=== PATIENT | male | born 1960 | race Caucasian/White ===

== ENCOUNTER 2023-03-10 18:10 | Inpatient (IN) | payer OTHER ==
[2023-03-10 18:44] VITALS: BMI 21.4
[2023-03-10] MEDS ORDERED: LACTATED RINGERS SOLUTION 1000 ML INFUS.BAG IV ONE (20:48)
[2023-03-10] MEDS ORDERED: ONDANSETRON 4 MG/2 ML VIAL IVPUSH ONE (20:48)
[2023-03-10] MEDS ORDERED: ACETAMINOPHEN 1000 MG/100 ML BAG IVPB ONE (20:48)
[2023-03-10] MEDS ORDERED: FAMOTIDINE 20 MG/50 ML IVPB 20 MG/50 ML MG IVPB ONE (20:48)
[2023-03-10] MEDS ORDERED: ACETAMINOPHEN INJECTION 100 ML IVPB ONE (20:57)
[2023-03-10] MEDS ORDERED: ONDANSETRON 4 MG/2 ML VIAL ONE (20:57)
[2023-03-10] MEDS ORDERED: FAMOTIDINE 10 MG/ML VIAL IVPB ONE (20:58)
[2023-03-10 21:23] LABS: INR 1.43 (0.83-1.09); PROTHROMBIN TIME (PATIENT) 16.5 SEC (9.7-13.0)
[2023-03-10 21:26] LABS: ACTIVATED PTT 34.8 SECONDS (25.2-36.5)
[2023-03-10 21:31] LABS: VENOUS PH 7.399 (7.310-7.410)
[2023-03-10] MEDS ORDERED: VANCOMYCIN 1,000 MG in DEXTROSE 5%-WATER - 250 ML IVPB ONE (21:55)
[2023-03-10] MEDS ORDERED: PIPERACILLIN/TAZOB 4.5 GM 4.5 GM in DEXTROSE 5%-WATER 100 ML IVPB ONE (21:55)
[2023-03-10 22:03] LABS: POTASSIUM 4.3 mmol/L (3.5-5.1)
[2023-03-10 22:07] LABS: ALBUMIN 3.1 g/dl (3.4-5.0); CALCIUM 8.9 mg/dL (8.5-10.1)
[2023-03-10 22:08] LABS: BLOOD UREA NITROGEN 16.7 mg/dL (7-18)
[2023-03-10 22:11] LABS: CREATININE 0.9 mg/dL (0.55-1.3)
[2023-03-10 22:12] LABS: BILIRUBIN,TOTAL 0.9 mg/dL (0.2-1); TOT PROT 6.8 g/dl (6.4-8.2)
[2023-03-10] MEDS ORDERED: CEFTRIAXONE 1,000 MG in DEXTROSE 5%-WATER - 50 ML IVPB ONE (23:04)
[2023-03-10] MEDS ORDERED: AZITHROMYCIN IVPB 500 MG in DEXTROSE 5%-WATER - 250 ML IVPB ONE (23:04)
[2023-03-10] MEDS ORDERED: CEFTRIAXONE 1 GM/50 ML BAG ONE (23:51)
[2023-03-10] MEDS ORDERED: AZITHROMYCIN IVPB 500 MG/250 ML BAG IVPB ONE (23:52)
[2023-03-11 01:18] LABS: HEMATOCRIT 34.9 % (35.4-49); HEMOGLOBIN 12.3 GM/dL (11.7-16.9); MCH 31.3 pg (25.7-33.7); MCHC 35.1 g/dl (32.0-35.9); MEAN CELL VOLUME 89.3 fl (80-96); MEAN PLT VOLUME 8.7 fl (7.5-11.1); PLATELET COUNT 105 10^3/uL (134-434); RBC 3.91 M/mm3 (4.00-5.60); WHITE BLOOD COUNT 10.1 K/mm3 (4.0-10.0)
[2023-03-11 02:13] LABS: LACTIC ACID 2.8 mmol/L (0.4-2.0)
[2023-03-11 03:15] LABS: EPI CELLS 5 /uL (0-25.1); HYALINE CASTS 0 /uL (0-3.1); PH,URINE 7.5 (5.0-8.0); URINE APPEARANCE TURBID; URINE BACTERIA 292 /uL (0-1359); URINE BILIRUBIN NEGATIVE (NEGATIVE); URINE COLOR ORANGE; URINE GLUCOSE (UA) 2+ (NEGATIVE); URINE KETONE NEGATIVE (NEGATIVE); URINE LEUK ESTERASE 1+ (NEGATIVE); URINE NITRITE NEGATIVE (NEGATIVE); URINE PROTEIN 2+ (NEGATIVE); URINE RBC 4131 /uL (0-23.9); URINE WBC 11532 /uL (0-25.8)
[2023-03-11] MEDS ORDERED: VANCOMYCIN 1 GRAM (PRE-DOCKED) 1,000 MG/250 ML BAG IVPB SCH ×2 (05:30→06:00)
[2023-03-11] MEDS ORDERED: VANCOMYCIN 1 GRAM (PRE-DOCKED) 1,000 MG/250 ML BAG IVPB ONE (05:53)
[2023-03-11 06:42] LABS: HEMOGLOBIN 11.8 GM/dL (11.7-16.9); MCH 30.3 pg (25.7-33.7); MCHC 33.6 g/dl (32.0-35.9); MEAN CELL VOLUME 90.3 fl (80-96); MEAN PLT VOLUME 8.9 fl (7.5-11.1); PLATELET COUNT 99 10^3/uL (134-434); RBC 3.88 M/mm3 (4.00-5.60); RDW 13.6 % (11.9-15.9); WHITE BLOOD COUNT 11.8 K/mm3 (4.0-10.0)
[2023-03-11 07:10] LABS: CALCIUM 8.4 mg/dL (8.5-10.1)
[2023-03-11 07:11] LABS: ALBUMIN 2.6 g/dl (3.4-5.0); BLOOD UREA NITROGEN 15.2 mg/dL (7-18); MAGNESIUM 1.7 mg/dL (1.8-2.4)
[2023-03-11 07:14] LABS: CREATININE 0.7 mg/dL (0.55-1.3); PHOSPHOROUS 3.1 mg/dL (2.5-4.9)
[2023-03-11 07:15] LABS: BILIRUBIN,TOTAL 0.5 mg/dL (0.2-1)
[2023-03-11 07:16] LABS: TOT PROT 5.9 g/dl (6.4-8.2)
[2023-03-11] MEDS: PANTOPRAZOLE 20 MG TABLET PO SCH (08:55)
[2023-03-11] MEDS ORDERED: ENOXAPARIN NA (PORCINE) 40 MG/0.4 ML DISP.SYRIN SQ SCH (10:00)
[2023-03-11] MEDS ORDERED: PIPERACILLIN/TAZOB 3.375 GM 3.375 GM in DEXTROSE 5%-WATER - 50 ML IVPB SCH (10:00)
[2023-03-11] MEDS ORDERED: clonazePAM 0.5 MG ODT TABLETS SL SCH (10:00)
[2023-03-11] MEDS ORDERED: DIVALPROEX NA *ER* EXTEND REL 500 MG TABLET.SA (FP) PO SCH ×2 (10:00→22:00)
[2023-03-11] MEDS: FOLIC ACID 1 MG TABLET (FP) PO SCH (10:08)
[2023-03-11] MEDS: CHOLECALCIFEROL (VIT D3) 1,000 UNIT (25 MCG) TABLET PO SCH (10:08)
[2023-03-11] MEDS ORDERED: clonazePAM 0.5 MG TABLET PO SCH ×2 (11:00→22:00)
[2023-03-11 11:27] LABS: LACTIC ACID 2.2 mmol/L (0.4-2.0)
[2023-03-11] MEDS: INSULIN SLIDING SCALE (NOVOLOG) 1 VIAL SQ SCH ×3 (11:32→22:56)
[2023-03-11] MEDS ORDERED: DIVALPROEX SODIUM 500 MG TABLET E.C. PO SCH (12:47)
[2023-03-11] MEDS: BACITRACIN ZINC 15 GM TUBE TOPICAL OINTMENT TP SCH ×2 (13:54→22:18)
[2023-03-11] MEDS: DIVALPROEX SODIUM 500 MG TABLET E.C. PO SCH ×2 (14:52→22:18)
[2023-03-11] MEDS: PIPERACILLIN/TAZOB 3.375 GM 3.375 GM in DEXTROSE 5%-WATER - 50 ML IVPB SCH (17:10)
[2023-03-11] MEDS ORDERED: ARIPiprazole 2 MG TABLET PO SCH (22:00)
[2023-03-12] MEDS: PIPERACILLIN/TAZOB 3.375 GM 3.375 GM in DEXTROSE 5%-WATER - 50 ML IVPB SCH ×3 (01:24→17:42)
[2023-03-12] MEDS: INSULIN SLIDING SCALE (NOVOLOG) 1 VIAL SQ SCH ×4 (06:28→22:15)
[2023-03-12] MEDS: PANTOPRAZOLE 20 MG TABLET PO SCH (06:29)
[2023-03-12 10:10] LABS: HEMOGLOBIN 11.6 GM/dL (11.7-16.9); MCH 31.1 pg (25.7-33.7); MCHC 35.2 g/dl (32.0-35.9); MEAN CELL VOLUME 88.2 fl (80-96); MEAN PLT VOLUME 8.6 fl (7.5-11.1); PLATELET COUNT 86 10^3/uL (134-434); RBC 3.74 M/mm3 (4.00-5.60); RDW 13.9 % (11.9-15.9); WHITE BLOOD COUNT 9.9 K/mm3 (4.0-10.0)
[2023-03-12 10:39] LABS: POTASSIUM 3.8 mmol/L (3.5-5.1)
[2023-03-12 10:44] LABS: CALCIUM 8.5 mg/dL (8.5-10.1)
[2023-03-12 10:45] LABS: BLOOD UREA NITROGEN 16.5 mg/dL (7-18)
[2023-03-12 10:47] LABS: CREATININE 0.7 mg/dL (0.55-1.3)
[2023-03-12 10:49] LABS: BILIRUBIN,TOTAL 0.3 mg/dL (0.2-1); TOT PROT 5.8 g/dl (6.4-8.2)
[2023-03-12 10:51] LABS: ALBUMIN 2.4 g/dl (3.4-5.0)
[2023-03-12] MEDS: FLUoxetine HCL 20 MG CAPSULE PO SCH (11:29)
[2023-03-12] MEDS: CHOLECALCIFEROL (VIT D3) 1,000 UNIT (25 MCG) TABLET PO SCH (11:29)
[2023-03-12] MEDS: DIVALPROEX SODIUM 500 MG TABLET E.C. PO SCH ×2 (11:29→22:15)
[2023-03-12] MEDS: FOLIC ACID 1 MG TABLET (FP) PO SCH (11:29)
[2023-03-12] MEDS: BACITRACIN ZINC 15 GM TUBE TOPICAL OINTMENT TP SCH ×2 (11:57→22:15)
[2023-03-12] MEDS: ARIPiprazole 2 MG TABLET PO SCH (22:14)
[2023-03-13] MEDS: PIPERACILLIN/TAZOB 3.375 GM 3.375 GM in DEXTROSE 5%-WATER - 50 ML IVPB SCH ×2 (01:30→10:06)
[2023-03-13] MEDS: INSULIN SLIDING SCALE (NOVOLOG) 1 VIAL SQ SCH ×3 (06:36→12:53)
[2023-03-13] MEDS: PANTOPRAZOLE 20 MG TABLET PO SCH (06:37)
[2023-03-13 09:43] LABS: HEMOGLOBIN 11.5 GM/dL (11.7-16.9); MCH 30.9 pg (25.7-33.7); MCHC 34.9 g/dl (32.0-35.9); MEAN CELL VOLUME 88.7 fl (80-96); MEAN PLT VOLUME 9.3 fl (7.5-11.1); PLATELET COUNT 95 10^3/uL (134-434); RBC 3.71 M/mm3 (4.00-5.60); RDW 13.6 % (11.9-15.9); WHITE BLOOD COUNT 5.9 K/mm3 (4.0-10.0)
[2023-03-13 09:47] LABS: BLOOD UREA NITROGEN 17.6 mg/dL (7-18); CALCIUM 8.4 mg/dL (8.5-10.1)
[2023-03-13 09:51] LABS: CREATININE 0.5 mg/dL (0.55-1.3)
[2023-03-13] MEDS: DIVALPROEX SODIUM 500 MG TABLET E.C. PO SCH ×2 (10:06→22:36)
[2023-03-13] MEDS: FOLIC ACID 1 MG TABLET (FP) PO SCH (10:06)
[2023-03-13] MEDS: CHOLECALCIFEROL (VIT D3) 1,000 UNIT (25 MCG) TABLET PO SCH (10:06)
[2023-03-13] MEDS: BACITRACIN ZINC 15 GM TUBE TOPICAL OINTMENT TP SCH ×2 (10:07→22:35)
[2023-03-13] MEDS: FLUoxetine HCL 20 MG CAPSULE PO SCH (10:35)
[2023-03-13] MEDS ORDERED: INSULIN SLIDING SCALE (NOVOLOG) 1 VIAL SQ SCH (12:58)
[2023-03-13] MEDS: ACETAMINOPHEN 500 MG TABLET (FP) PO PRN ×2 (13:20→22:39)
[2023-03-13] MEDS: MEROPENEM 1 GM in DEXTROSE 5%-WATER 100 ML IVPB SCH ×2 (13:22→17:24)
[2023-03-13] MEDS: ARIPiprazole 2 MG TABLET PO SCH (22:35)
[2023-03-14] MEDS: MEROPENEM 1 GM in DEXTROSE 5%-WATER 100 ML IVPB SCH ×3 (02:42→18:57)
[2023-03-14] MEDS: PANTOPRAZOLE 20 MG TABLET PO SCH (06:17)
[2023-03-14] MEDS ORDERED: MEROPENEM 1 GM VIAL (RESTRICTED TO ID) IVPB ONE (09:05)
[2023-03-14] MEDS: FLUoxetine HCL 20 MG CAPSULE PO SCH (09:19)
[2023-03-14] MEDS: DIVALPROEX SODIUM 500 MG TABLET E.C. PO SCH ×2 (09:19→22:34)
[2023-03-14] MEDS: FOLIC ACID 1 MG TABLET (FP) PO SCH (09:19)
[2023-03-14] MEDS: BACITRACIN ZINC 15 GM TUBE TOPICAL OINTMENT TP SCH ×2 (09:19→22:36)
[2023-03-14] MEDS: CHOLECALCIFEROL (VIT D3) 1,000 UNIT (25 MCG) TABLET PO SCH (09:19)
[2023-03-14] MEDS: ARIPiprazole 2 MG TABLET PO SCH (22:33)
[2023-03-15] MEDS: MEROPENEM 1 GM in DEXTROSE 5%-WATER 100 ML IVPB SCH ×3 (01:09→17:15)
[2023-03-15] MEDS: PANTOPRAZOLE 20 MG TABLET PO SCH (06:31)
[2023-03-15 07:46] LABS: HEMATOCRIT 34.5 % (35.4-49); HEMOGLOBIN 11.8 GM/dL (11.7-16.9); MCH 30.2 pg (25.7-33.7); MCHC 34.2 g/dl (32.0-35.9); MEAN CELL VOLUME 88.3 fl (80-96); PLATELET COUNT 150 10^3/uL (134-434); RBC 3.91 M/mm3 (4.00-5.60); RDW 13.6 % (11.9-15.9); WHITE BLOOD COUNT 6.2 K/mm3 (4.0-10.0)
[2023-03-15 07:57] LABS: CALCIUM 8.4 mg/dL (8.5-10.1)
[2023-03-15 07:58] LABS: BLOOD UREA NITROGEN 17.6 mg/dL (7-18)
[2023-03-15 07:59] LABS: POTASSIUM 4.3 mmol/L (3.5-5.1)
[2023-03-15 08:01] LABS: CREATININE 0.7 mg/dL (0.55-1.3)
[2023-03-15] MEDS: ACETAMINOPHEN 500 MG TABLET (FP) PO PRN ×2 (08:47→23:36)
[2023-03-15 09:02] LABS: ANISOCYTOSIS 0; MACROCYTOSIS 0
[2023-03-15] MEDS: DIVALPROEX SODIUM 500 MG TABLET E.C. PO SCH ×2 (10:39→21:04)
[2023-03-15] MEDS: LACTOBACILLUS ACIDOPHILUS 1 TABLET PO SCH (10:39)
[2023-03-15] MEDS: FLUoxetine HCL 20 MG CAPSULE PO SCH (10:39)
[2023-03-15] MEDS: FOLIC ACID 1 MG TABLET (FP) PO SCH (10:39)
[2023-03-15] MEDS: CHOLECALCIFEROL (VIT D3) 1,000 UNIT (25 MCG) TABLET PO SCH (10:39)
[2023-03-15] MEDS: BACITRACIN ZINC 15 GM TUBE TOPICAL OINTMENT TP SCH ×2 (10:52→21:05)
[2023-03-15] MEDS ORDERED: SIMETHICONE 40 MG/0.6 ML BOTTLE PO PRN (12:04)
[2023-03-15] MEDS ORDERED: SIMETHICONE 80 MG TAB.CHEW (FP) PO PRN (13:12)
[2023-03-15] MEDS: ARIPiprazole 2 MG TABLET PO SCH (21:05)
[2023-03-16] MEDS: MEROPENEM 1 GM in DEXTROSE 5%-WATER 100 ML IVPB SCH ×3 (02:11→17:07)
[2023-03-16] MEDS: PANTOPRAZOLE 20 MG TABLET PO SCH (06:12)
[2023-03-16] MEDS: FLUoxetine HCL 20 MG CAPSULE PO SCH (10:20)
[2023-03-16 10:21] LABS: HEMATOCRIT 36.1 % (35.4-49); HEMOGLOBIN 12.8 GM/dL (11.7-16.9); MCH 31.2 pg (25.7-33.7); MCHC 35.4 g/dl (32.0-35.9); MEAN CELL VOLUME 88.2 fl (80-96); MEAN PLT VOLUME 7.3 fl (7.5-11.1); PLATELET COUNT 201 10^3/uL (134-434); RBC 4.09 M/mm3 (4.00-5.60); RDW 13.7 % (11.9-15.9); WHITE BLOOD COUNT 5.6 K/mm3 (4.0-10.0)
[2023-03-16] MEDS: DIVALPROEX SODIUM 500 MG TABLET E.C. PO SCH ×2 (10:21→21:23)
[2023-03-16] MEDS: LACTOBACILLUS ACIDOPHILUS 1 TABLET PO SCH (10:21)
[2023-03-16] MEDS: CHOLECALCIFEROL (VIT D3) 1,000 UNIT (25 MCG) TABLET PO SCH (10:21)
[2023-03-16] MEDS: FOLIC ACID 1 MG TABLET (FP) PO SCH (10:21)
[2023-03-16 10:53] LABS: ANISOCYTOSIS 0; HELMET CELLS 0; HOWELL-JOLLY BODIES 0; MACROCYTOSIS 0; OVALOCYTE 0; ROULEAU 0; SICKELED CELLS 0; TARGET CELLS 0; TEAR DROP CELLS 0; TOXIC GRANULATION 0
[2023-03-16 10:54] LABS: POTASSIUM 4.2 mmol/L (3.5-5.1)
[2023-03-16 10:58] LABS: CALCIUM 8.6 mg/dL (8.5-10.1)
[2023-03-16 10:59] LABS: ALBUMIN 2.8 g/dl (3.4-5.0); BLOOD UREA NITROGEN 21.9 mg/dL (7-18)
[2023-03-16 11:02] LABS: CREATININE 0.8 mg/dL (0.55-1.3)
[2023-03-16 11:04] LABS: BILIRUBIN,TOTAL 0.2 mg/dL (0.2-1); TOT PROT 6.4 g/dl (6.4-8.2)
[2023-03-16] MEDS: BACITRACIN ZINC 15 GM TUBE TOPICAL OINTMENT TP SCH ×2 (11:20→21:24)
[2023-03-16] MEDS: ENOXAPARIN NA (PORCINE) 40 MG/0.4 ML DISP.SYRIN SQ SCH (15:07)
[2023-03-16] MEDS: ALBUTEROL SO4 2.5/IPRATROPIUM 0.5 INH SOL 3 ML VIAL.NEB. NEB SCH ×2 (15:53→20:05)
[2023-03-16] MEDS: ARIPiprazole 2 MG TABLET PO SCH (21:23)
[2023-03-17] MEDS: MEROPENEM 1 GM in DEXTROSE 5%-WATER 100 ML IVPB SCH ×3 (01:43→17:17)
[2023-03-17] MEDS: PANTOPRAZOLE 20 MG TABLET PO SCH (06:04)
[2023-03-17] MEDS: ALBUTEROL SO4 2.5/IPRATROPIUM 0.5 INH SOL 3 ML VIAL.NEB. NEB SCH ×4 (07:37→20:39)
[2023-03-17 09:51] LABS: HEMATOCRIT 35.2 % (35.4-49); HEMOGLOBIN 12.3 GM/dL (11.7-16.9); MCH 30.9 pg (25.7-33.7); MCHC 34.9 g/dl (32.0-35.9); MEAN CELL VOLUME 88.6 fl (80-96); MEAN PLT VOLUME 7.8 fl (7.5-11.1); PLATELET COUNT 236 10^3/uL (134-434); RBC 3.97 M/mm3 (4.00-5.60); RDW 13.5 % (11.9-15.9); WHITE BLOOD COUNT 7.2 K/mm3 (4.0-10.0)
[2023-03-17 10:11] LABS: POTASSIUM 4.2 mmol/L (3.5-5.1)
[2023-03-17] MEDS: ENOXAPARIN NA (PORCINE) 40 MG/0.4 ML DISP.SYRIN SQ SCH (10:23)
[2023-03-17] MEDS: CHOLECALCIFEROL (VIT D3) 1,000 UNIT (25 MCG) TABLET PO SCH (10:24)
[2023-03-17] MEDS: FOLIC ACID 1 MG TABLET (FP) PO SCH (10:24)
[2023-03-17] MEDS: LACTOBACILLUS ACIDOPHILUS 1 TABLET PO SCH (10:24)
[2023-03-17] MEDS: BACITRACIN ZINC 15 GM TUBE TOPICAL OINTMENT TP SCH ×2 (10:25→21:26)
[2023-03-17] MEDS: FLUoxetine HCL 20 MG CAPSULE PO SCH (10:25)
[2023-03-17] MEDS: ARIPiprazole 2 MG TABLET PO SCH ×2 (10:26→21:27)
[2023-03-17 10:49] LABS: CALCIUM 8.5 mg/dL (8.5-10.1)
[2023-03-17] MEDS: DIVALPROEX SODIUM 500 MG TABLET E.C. PO SCH ×2 (10:49→21:26)
[2023-03-17 10:50] LABS: ANISOCYTOSIS 2+; BLOOD UREA NITROGEN 18.9 mg/dL (7-18); MACROCYTOSIS 0
[2023-03-17 10:53] LABS: CREATININE 0.5 mg/dL (0.55-1.3)
[2023-03-18] MEDS: MEROPENEM 1 GM in DEXTROSE 5%-WATER 100 ML IVPB SCH ×2 (02:21→12:37)
[2023-03-18] MEDS: PANTOPRAZOLE 20 MG TABLET PO SCH (06:09)
[2023-03-18] MEDS: ALBUTEROL SO4 2.5/IPRATROPIUM 0.5 INH SOL 3 ML VIAL.NEB. NEB SCH ×4 (08:02→20:15)
[2023-03-18 10:04] LABS: BASO % 0.6 % (0-2.0); EOS % 0.5 % (0-4.5); HEMATOCRIT 36.8 % (35.4-49); HEMOGLOBIN 12.4 GM/dL (11.7-16.9); LYMPH % 38.8 % (8-40); MCHC 33.6 g/dl (32.0-35.9); MEAN CELL VOLUME 89.3 fl (80-96); MEAN PLT VOLUME 7.2 fl (7.5-11.1); MONO % 9.8 % (3.8-10.2); NEUT % 50.3 % (42.8-82.8); PLATELET COUNT 332 10^3/uL (134-434); RBC 4.13 M/mm3 (4.00-5.60); RDW 14.1 % (11.9-15.9); WHITE BLOOD COUNT 7.2 K/mm3 (4.0-10.0)
[2023-03-18 10:23] LABS: POTASSIUM 3.9 mmol/L (3.5-5.1)
[2023-03-18 10:26] LABS: CALCIUM 8.7 mg/dL (8.5-10.1)
[2023-03-18 10:27] LABS: ALBUMIN 2.8 g/dl (3.4-5.0); BLOOD UREA NITROGEN 19.9 mg/dL (7-18)
[2023-03-18 10:28] LABS: CREATININE 0.6 mg/dL (0.55-1.3)
[2023-03-18 10:32] LABS: BILIRUBIN,TOTAL 0.3 mg/dL (0.2-1); TOT PROT 6.6 g/dl (6.4-8.2)
[2023-03-18] MEDS: FOLIC ACID 1 MG TABLET (FP) PO SCH (10:57)
[2023-03-18] MEDS: CHOLECALCIFEROL (VIT D3) 1,000 UNIT (25 MCG) TABLET PO SCH (10:57)
[2023-03-18] MEDS: ENOXAPARIN NA (PORCINE) 40 MG/0.4 ML DISP.SYRIN SQ SCH (10:57)
[2023-03-18] MEDS: LACTOBACILLUS ACIDOPHILUS 1 TABLET PO SCH (10:58)
[2023-03-18] MEDS: DIVALPROEX SODIUM 500 MG TABLET E.C. PO SCH ×2 (10:58→22:04)
[2023-03-18] MEDS: FLUoxetine HCL 20 MG CAPSULE PO SCH (11:08)
[2023-03-18] MEDS: BACITRACIN ZINC 15 GM TUBE TOPICAL OINTMENT TP SCH ×2 (13:06→22:04)
[2023-03-18] MEDS: ARIPiprazole 2 MG TABLET PO SCH (22:04)
[2023-03-19] MEDS: PANTOPRAZOLE 20 MG TABLET PO SCH (06:34)
[2023-03-19] MEDS: ALBUTEROL SO4 2.5/IPRATROPIUM 0.5 INH SOL 3 ML VIAL.NEB. NEB SCH ×4 (07:15→20:05)
[2023-03-19] MEDS: LACTOBACILLUS ACIDOPHILUS 1 TABLET PO SCH (09:47)
[2023-03-19] MEDS: ENOXAPARIN NA (PORCINE) 40 MG/0.4 ML DISP.SYRIN SQ SCH (09:47)
[2023-03-19] MEDS: FOLIC ACID 1 MG TABLET (FP) PO SCH (09:47)
[2023-03-19] MEDS: DIVALPROEX SODIUM 500 MG TABLET E.C. PO SCH ×2 (09:47→21:36)
[2023-03-19] MEDS: CHOLECALCIFEROL (VIT D3) 1,000 UNIT (25 MCG) TABLET PO SCH (09:47)
[2023-03-19] MEDS: BACITRACIN ZINC 15 GM TUBE TOPICAL OINTMENT TP SCH ×2 (09:48→21:35)
[2023-03-19] MEDS: FLUoxetine HCL 20 MG CAPSULE PO SCH (09:48)
[2023-03-19 10:03] LABS: HEMATOCRIT 34.1 % (35.4-49); HEMOGLOBIN 11.6 GM/dL (11.7-16.9); MCH 30.2 pg (25.7-33.7); MEAN CELL VOLUME 89.1 fl (80-96); MEAN PLT VOLUME 7.2 fl (7.5-11.1); PLATELET COUNT 383 10^3/uL (134-434); RBC 3.83 M/mm3 (4.00-5.60); WHITE BLOOD COUNT 6.7 K/mm3 (4.0-10.0)
[2023-03-19 10:14] LABS: POTASSIUM 4.2 mmol/L (3.5-5.1)
[2023-03-19 10:42] LABS: ALBUMIN 2.8 g/dl (3.4-5.0); BLOOD UREA NITROGEN 23.1 mg/dL (7-18); CALCIUM 8.9 mg/dL (8.5-10.1)
[2023-03-19 10:43] LABS: BILIRUBIN,TOTAL 0.3 mg/dL (0.2-1)
[2023-03-19 10:44] LABS: TOT PROT 6.3 g/dl (6.4-8.2)
[2023-03-19 10:45] LABS: CREATININE 0.6 mg/dL (0.55-1.3)
[2023-03-19] MEDS: ARIPiprazole 2 MG TABLET PO SCH (21:35)
[2023-03-20] MEDS: PANTOPRAZOLE 20 MG TABLET PO SCH (06:28)
[2023-03-20] MEDS: ALBUTEROL SO4 2.5/IPRATROPIUM 0.5 INH SOL 3 ML VIAL.NEB. NEB SCH ×4 (07:45→20:08)
[2023-03-20 07:47] LABS: BASO % 0.7 % (0-2.0); EOS % 1.9 % (0-4.5); HEMATOCRIT 35.3 % (35.4-49); HEMOGLOBIN 11.9 GM/dL (11.7-16.9); LYMPH % 39.9 % (8-40); MCH 30.4 pg (25.7-33.7); MCHC 33.8 g/dl (32.0-35.9); MEAN PLT VOLUME 7.2 fl (7.5-11.1); MONO % 8.1 % (3.8-10.2); NEUT % 49.4 % (42.8-82.8); PLATELET COUNT 401 10^3/uL (134-434); RBC 3.93 M/mm3 (4.00-5.60); RDW 13.8 % (11.9-15.9); WHITE BLOOD COUNT 6.8 K/mm3 (4.0-10.0)
[2023-03-20 08:13] LABS: POTASSIUM 4.3 mmol/L (3.5-5.1)
[2023-03-20 08:19] LABS: CALCIUM 8.7 mg/dL (8.5-10.1)
[2023-03-20 08:20] LABS: ALBUMIN 2.8 g/dl (3.4-5.0); BLOOD UREA NITROGEN 19.7 mg/dL (7-18)
[2023-03-20 08:23] LABS: CREATININE 0.5 mg/dL (0.55-1.3)
[2023-03-20 08:24] LABS: BILIRUBIN,TOTAL 0.3 mg/dL (0.2-1); TOT PROT 6.3 g/dl (6.4-8.2)
[2023-03-20] MEDS: FOLIC ACID 1 MG TABLET (FP) PO SCH (09:58)
[2023-03-20] MEDS: CHOLECALCIFEROL (VIT D3) 1,000 UNIT (25 MCG) TABLET PO SCH (09:58)
[2023-03-20] MEDS: ENOXAPARIN NA (PORCINE) 40 MG/0.4 ML DISP.SYRIN SQ SCH (09:59)
[2023-03-20] MEDS: LACTOBACILLUS ACIDOPHILUS 1 TABLET PO SCH (09:59)
[2023-03-20] MEDS: FLUoxetine HCL 20 MG CAPSULE PO SCH (09:59)
[2023-03-20] MEDS: DIVALPROEX SODIUM 500 MG TABLET E.C. PO SCH ×2 (09:59→21:54)
[2023-03-20] MEDS: BACITRACIN ZINC 15 GM TUBE TOPICAL OINTMENT TP SCH ×2 (10:09→21:55)
[2023-03-20] MEDS: ACETAMINOPHEN 500 MG TABLET (FP) PO PRN (14:21)
[2023-03-20] MEDS: ARIPiprazole 2 MG TABLET PO SCH (21:54)
[2023-03-21] MEDS: PANTOPRAZOLE 20 MG TABLET PO SCH (06:10)
[2023-03-21] MEDS: ALBUTEROL SO4 2.5/IPRATROPIUM 0.5 INH SOL 3 ML VIAL.NEB. NEB SCH ×4 (07:50→20:30)
[2023-03-21] MEDS: LACTOBACILLUS ACIDOPHILUS 1 TABLET PO SCH (09:28)
[2023-03-21] MEDS: ENOXAPARIN NA (PORCINE) 40 MG/0.4 ML DISP.SYRIN SQ SCH (09:28)
[2023-03-21] MEDS: CHOLECALCIFEROL (VIT D3) 1,000 UNIT (25 MCG) TABLET PO SCH (09:29)
[2023-03-21] MEDS: DIVALPROEX SODIUM 500 MG TABLET E.C. PO SCH ×2 (09:29→21:53)
[2023-03-21] MEDS: FLUoxetine HCL 20 MG CAPSULE PO SCH (09:29)
[2023-03-21] MEDS: FOLIC ACID 1 MG TABLET (FP) PO SCH (09:29)
[2023-03-21] MEDS: BACITRACIN ZINC 15 GM TUBE TOPICAL OINTMENT TP SCH ×2 (09:30→21:52)
[2023-03-21 10:47] LABS: BASO % 0.5 % (0-2.0); EOS % 1.1 % (0-4.5); HEMATOCRIT 36.5 % (35.4-49); HEMOGLOBIN 12.7 GM/dL (11.7-16.9); LYMPH % 34.6 % (8-40); MCH 30.7 pg (25.7-33.7); MCHC 34.9 g/dl (32.0-35.9); MEAN CELL VOLUME 87.9 fl (80-96); MEAN PLT VOLUME 7.1 fl (7.5-11.1); MONO % 6.9 % (3.8-10.2); NEUT % 56.9 % (42.8-82.8); PLATELET COUNT 516 10^3/uL (134-434); RBC 4.16 M/mm3 (4.00-5.60); RDW 13.5 % (11.9-15.9); WHITE BLOOD COUNT 6.7 K/mm3 (4.0-10.0)
[2023-03-21 11:07] LABS: POTASSIUM 4.2 mmol/L (3.5-5.1)
[2023-03-21 11:11] LABS: ALBUMIN 2.9 g/dl (3.4-5.0); BLOOD UREA NITROGEN 22.2 mg/dL (7-18); CALCIUM 8.9 mg/dL (8.5-10.1)
[2023-03-21 11:14] LABS: CREATININE 0.6 mg/dL (0.55-1.3)
[2023-03-21 11:16] LABS: BILIRUBIN,TOTAL 0.3 mg/dL (0.2-1); TOT PROT 6.7 g/dl (6.4-8.2)
[2023-03-21] MEDS: VANCOMYCIN ORAL SOLUTION 125 MG/2.5 ML PO SCH ×2 (12:37→17:05)
[2023-03-21] MEDS: ARIPiprazole 2 MG TABLET PO SCH (21:53)
[2023-03-22] MEDS: VANCOMYCIN ORAL SOLUTION 125 MG/2.5 ML PO SCH ×2 (00:12→05:22)
[2023-03-22] MEDS: ALBUTEROL SO4 2.5/IPRATROPIUM 0.5 INH SOL 3 ML VIAL.NEB. NEB SCH ×4 (08:00→20:00)
[2023-03-22] MEDS: CHOLECALCIFEROL (VIT D3) 1,000 UNIT (25 MCG) TABLET PO SCH (10:01)
[2023-03-22] MEDS: FLUoxetine HCL 20 MG CAPSULE PO SCH (10:01)
[2023-03-22] MEDS: FOLIC ACID 1 MG TABLET (FP) PO SCH (10:01)
[2023-03-22] MEDS: ENOXAPARIN NA (PORCINE) 40 MG/0.4 ML DISP.SYRIN SQ SCH (10:01)
[2023-03-22] MEDS: BACITRACIN ZINC 15 GM TUBE TOPICAL OINTMENT TP SCH ×2 (10:02→21:45)
[2023-03-22] MEDS: DIVALPROEX SODIUM 500 MG TABLET E.C. PO SCH ×2 (10:02→21:45)
[2023-03-22] MEDS: LACTOBACILLUS ACIDOPHILUS 1 TABLET PO SCH (10:02)
[2023-03-22 11:31] LABS: BASO % 0.5 % (0-2.0); EOS % 0.7 % (0-4.5); HEMATOCRIT 34.8 % (35.4-49); HEMOGLOBIN 12.5 GM/dL (11.7-16.9); LYMPH % 33.4 % (8-40); MCH 31.5 pg (25.7-33.7); MCHC 35.9 g/dl (32.0-35.9); MEAN CELL VOLUME 87.8 fl (80-96); MEAN PLT VOLUME 7.1 fl (7.5-11.1); MONO % 7.2 % (3.8-10.2); NEUT % 58.2 % (42.8-82.8); PLATELET COUNT 503 10^3/uL (134-434); RBC 3.96 M/mm3 (4.00-5.60); RDW 13.6 % (11.9-15.9); WHITE BLOOD COUNT 5.9 K/mm3 (4.0-10.0)
[2023-03-22 12:00] LABS: POTASSIUM 4.2 mmol/L (3.5-5.1)
[2023-03-22 12:06] LABS: BLOOD UREA NITROGEN 18.8 mg/dL (7-18)
[2023-03-22 12:08] LABS: CREATININE 0.5 mg/dL (0.55-1.3)
[2023-03-22 12:09] LABS: BILIRUBIN,TOTAL 0.3 mg/dL (0.2-1)
[2023-03-22 12:10] LABS: TOT PROT 6.5 g/dl (6.4-8.2)
[2023-03-22 13:12] VITALS: RESP 18
[2023-03-22] MEDS: ARIPiprazole 2 MG TABLET PO SCH (21:45)
[2023-03-23] MEDS: ALBUTEROL SO4 2.5/IPRATROPIUM 0.5 INH SOL 3 ML VIAL.NEB. NEB SCH ×3 (08:05→15:06)
[2023-03-23 09:08] VITALS: PULSE 100
[2023-03-23] MEDS: FLUoxetine HCL 20 MG CAPSULE PO SCH (10:03)
[2023-03-23] MEDS: DIVALPROEX SODIUM 500 MG TABLET E.C. PO SCH (10:03)
[2023-03-23] MEDS: CHOLECALCIFEROL (VIT D3) 1,000 UNIT (25 MCG) TABLET PO SCH (10:03)
[2023-03-23] MEDS: FOLIC ACID 1 MG TABLET (FP) PO SCH (10:03)
[2023-03-23] MEDS: ENOXAPARIN NA (PORCINE) 40 MG/0.4 ML DISP.SYRIN SQ SCH (10:03)
[2023-03-23] MEDS: LACTOBACILLUS ACIDOPHILUS 1 TABLET PO SCH (10:03)
[2023-03-23] MEDS: BACITRACIN ZINC 15 GM TUBE TOPICAL OINTMENT TP SCH (10:03)
[2023-03-23 11:43] LABS: HEMOGLOBIN 12.6 GM/dL (11.7-16.9); MCH 30.3 pg (25.7-33.7); MCHC 34.1 g/dl (32.0-35.9); MEAN CELL VOLUME 88.9 fl (80-96); MEAN PLT VOLUME 7.7 fl (7.5-11.1); PLATELET COUNT 532 10^3/uL (134-434); RBC 4.16 M/mm3 (4.00-5.60); RDW 13.8 % (11.9-15.9)
[2023-03-23 12:56] LABS: POTASSIUM 4.3 mmol/L (3.5-5.1)
[2023-03-23 13:05] LABS: BLOOD UREA NITROGEN 25.2 mg/dL (7-18); CALCIUM 9.1 mg/dL (8.5-10.1)
[2023-03-23 13:08] LABS: CREATININE 0.6 mg/dL (0.55-1.3)
[2023-03-23 15:24] VITALS: BP 114/80; TEMP 98.5
== END 2023-03-23 17:27 | disposition home or self-care (01) | DRG 871 ==
LOC: JER 18:10 → JERBED 03-11 03:49 → J5S 03-11 06:50 → J6W 03-14 16:28 → J5S 03-16 02:01
PROVIDERS: ADMIT Internal Medicine; ATTEND Internal Medicine
DX: A41.89 Other specified sepsis (principal); J18.9 Pneumonia, unspecified organism; E87.20 Acidosis, unspecified; N39.0 Urinary tract infection, site not specified; F84.0 Autistic disorder; J98.11 Atelectasis; N13.8 Other obstructive and reflux uropathy; D72.829 Elevated white blood cell count, unspecified; B96.20 Unspecified Escherichia coli [E. coli] as the cause of diseases classified elsewhere; G20 Parkinson's disease; R11.10 Vomiting, unspecified; K52.9 Noninfective gastroenteritis and colitis, unspecified; D69.6 Thrombocytopenia, unspecified; R73.9 Hyperglycemia, unspecified; D64.9 Anemia, unspecified; F39 Unspecified mood [affective] disorder; N31.9 Neuromuscular dysfunction of bladder, unspecified; R29.6 Repeated falls; R26.89 Other abnormalities of gait and mobility; N40.1 Benign prostatic hyperplasia with lower urinary tract symptoms
CPT/HCPCS: 0241U-QW; 36415; 70450-TC; 71045-TC-FY; 72125-TC; 73110-TC-RT-FY; 74177-TC; 80048; 80053; 81003; 82550; 82553; 82803; 82962; 83036; 83605; 83735; 84100; 84153; 84484; 85025; 85027; 85610; 85730; 86850; 86900; 86901; 87040; 87086; 87186; 87324; 87449; 87635; 87899; 93005; 93010; 94640; 97116-GP; 97162-GP; 99285-25

== ENCOUNTER 2024-07-01 17:57 | Emergency (ER) | payer OTHER ==
[2024-07-01 18:15] VITALS: BP 131/77; PULSE 48; RESP 16; TEMP 98.8; BMI 23.5
== END 2024-07-01 19:53 | disposition home or self-care (01) ==
LOC: JERFT 17:57
DX: Z04.1 Encounter for examination and observation following transport accident (principal); Z20.822 Contact with and (suspected) exposure to COVID-19
CPT/HCPCS: 0241U-QW; 87651; 99283-25